=== PATIENT | male | born 1985 | race Caucasian/White ===

== ENCOUNTER 2016-10-07 14:13 | Day surgery (SDC) | payer OTHER ==
[~2016-10-07] VITALS: Ht 177.8 cm; Wt 74.5 kg
[2016-10-07] VITALS (7 sets, daily range): BP systolic 116–138; BP diastolic 69–96; PULSE 69–79; RESP 5–19; O2SAT 98–99
[~2016-10-07 14:13] MED LIST: BENZ200C44 PO; CeFAZolin 2 Gm/50 mL D5W IV Premix IV ONE; Dexamethasone 4 mg/mL Inj IVPUSH PRN; EPHEDrine Sulfate 50 mg/mL Inj IVPUSH PRN; GUAI473S22 PO; HYDR-4003 PO; HYDROmorphone 1 mg/mL Inj IVPUSH PRN; Labetalol 5 mg/mL 4 mL Inj IV PRN; Lactated Ringer's 1,000 ML IV SCH; Lactated Ringer's 500 ML IV PRN; MetoCLOpramide 5 mg/mL 2 mL Inj IVPUSH PRN; Ondansetron 2 mg/mL 2 mL Inj IVPUSH PRN; Phenylephrine 10,000 mCg/mL Inj IVPUSH PRN; hydrALAZINE 20 mg/mL Inj IVPUSH PRN
[2016-10-07] MEDS ORDERED: Glycopyrrolate 0.2 MG/ML 1mL Inj ONE (14:14)
[2016-10-07] MEDS ORDERED: Rocuronium 10 mg/mL 5 mL Inj ONE (14:14)
[2016-10-07] MEDS ORDERED: HYDROmorphone 1 mg/mL Inj ONE (14:14)
[2016-10-07] MEDS ORDERED: fentaNYL-PF 50 mCg/mL 2 mL Inj ONE (14:14)
[2016-10-07] MEDS ORDERED: Dexamethasone 4 mg/mL Inj ONE (14:14)
[2016-10-07] MEDS ORDERED: Neostigmine 1 mg/mL 5 mL Inj ONE (14:14)
[2016-10-07] MEDS ORDERED: Ondansetron 2 mg/mL 2 mL Inj ONE (14:14)
[2016-10-07] MEDS ORDERED: Succinylcholine Chloride 20 mg/mL 5 mL Inj ONE (14:14)
[2016-10-07] MEDS ORDERED: Ketamine 10 mg/mL 20 mL Inj ONE (14:14)
[2016-10-07] MEDS ORDERED: Propofol 10 mg/mL 20 mL Inj ONE (14:14)
[2016-10-07] MEDS: Lactated Ringer's 1,000 ML IV SCH ×2 (14:24→15:20)
[2016-10-07] MEDS ORDERED: CeFAZolin 2 Gm/50 mL D5W Duplex Bag IV ONE (14:50)
--- NOTE | 2016-10-07 15:20 | PCM.HPANE ---
Patient Data Date of Service: Oct 07, 2016 Surgeon Admitting Provider: Attending Provider:Nacho Chan MD Primary Care Physician:Evangelina Other Provider:Loren Polo Anesthesia Reason for Visit Left Inguinal Hernia Ht/WT & BMI Height (Feet): 5 Height (Inches): 10.00 Weight (Kilograms): 74.500 Body Mass Index 23.00 Allergies Coded Allergies: No Known Allergies (Unverified , 10/06/16) Past Anesthesia History Anesthesia History: Denies:: Abnormal Airway, Anesthesia Reactions, Difficult Intubation Diabetes History Hx Diabetes?: No MRSA MRSA: No Medications Hypertension Medication: No Home Meds Incl Beta Shonda: No Reported Medications Hydrocodone-Acetaminophen 5-325 mg 1 Each Tablet1 Tablet PO Q8H PRN For Pain Ref 0 10/05/16 Guaifenesin/Codeine Phosphate (Guaifenesin AC Cough Syrup)473 Ml [id number] Ml PO Q4H PRN For Congestion 10/05/16 Benzonatate 200 Mg [id number] Mg PO BID PRN For Cough 10/05/16 History History of ENT Problems?: Yes HEENT History: Positive for:: Sinus Problem (deviated septum, hx of surgery - uses afrin) Denies:: Abnormal Airway Cataracts Difficult Intubation Dysphagia Glaucoma Hearing Problem TMJ Denture Type: None Teeth Condition: Within Normal Limits Missing Teeth Hx of Heart Problems?: No Cardiovascular History: Denies:: AICD Abdominal Aortic Aneurism Atrial Fibrillation Cardiac Surgery Chest Pain Congestive Heart Failure Coronary Artery Disease Edema Heart Murmur Hypertension Irregular Heartbeat Pacemaker Peripheral Vascular Rheumatic Fever Thrombophlebitis Hx of Respiratory Problem?: Yes Respiratory History: Positive for:: Cough (hx of recent cough/cold with rx given , getting better- no fever) Denies:: Asthma COPD Oxygen Administration Pneumonia Tuberculosis Use of C-PAP Machine Use of Inhalers / NEBS Hx Neurologic Problems?: No Neurological History: Denies:: CVA Headaches Multiple Sclerosis Parkinson's Disease Seizures TIA Hx of GI Problems?: Yes Other GI Pertinent History: left inguinal hernia current admission problem Hx of Problems?: No Genitourinary History: Denies:: Kidney Stones Urinary Tract Infection Male Hx: Denies:: Prostate Problems Scrotal Mass Testicular Surgery Hx Musculoskeletal Problems?: No Musculoskeletal History: Denies:: Back Injury Degenerative Joint Fibromyalgia Joint Replacement Musculoskeletal Trauma Myasthenia Gravis Osteoarthritis Systemic Lupus Hx of Psycho/Social Problems?: No Hx Surgeries?: Yes (nasal septal surgery, wisdom teeth) Hx Any Other Health Problems?: Yes Other History: Denies:: Cancer Thyroid Disease History Blood Transfusions: Positive for:: Accept Blood Products? Denies:: Blood Transfusions Hx Diabetes: No Hx Alcohol Use: YesAlcoholic Drinks Per Day: 2-3 drinks weekendHx Substance Use: NoHave You Smoked inLast 12 mo: Yes (one half pack ) Stop/Bang S-Snoring: Do You Snore Loudly: No T-Tired: feel tired, fatigued: No O-Obsered: Observed not breath: No P-Blood Pressure: treated: No B- Body Mass Index > 35 kg/m2: No A- Age over 50: No N- Neck Large Circumference: No G- Gender Male: Yes ALTHEA Total Score: 1 ALTHEA Risk Assessment: Low Risk, <3 Yes Risk Assessment Category Category 1A: Patient has history of documented sleep apnea, and HAS NOT received any narcotic, sedative or anesthesia administration during this stay. Category 1B: Patient has history of documented sleep apnea, and HAS received any narcotic , sedative or anesthesia administration during this stay Category 2: Patient has SUSPECTED Obstructive Sleep Apnea, and HAS received any narcotic , sedative or anesthesia administration during this stay. Category 3: Patient has SUSPECTED Obstructive Sleep Apnea and HAS NOT received narcotic, sedative or anesthesia administration during this stay. Category 4: Outpatient in Procedural Areas with known sleep apnea or who screen positive for High Risk via the STOP/BANG questionnaire. Exam Exam Vital Signs Vital Signs Date Time Temp Pulse Resp B/P Pulse Ox O2 Delivery O2 Flow Rate FiO2 10/07/16 14:35 36.5 79 18 127/74 99 Room Air General Appearance: Alert, Oriented X3, Cooperative, No Acute Distress HEENT/AIRWAY: MP 2 Lungs: Clear to Auscultation, Normal Air Movement Heart: Exam Unremarkable, Regular Rate/Rhythm, No Murmurs/Rubs/Gallops Meds/Labs/Diagnostics Admission Meds Current Medications Lactated Ringer's (Lr) 1,000 ml @ 120 mls/hr Q8H20M IV Last administered on t 14:24; Start 10/07/16 at 05:00; Stop 10/07/16 at 13:19; Status DC Plan Impression Patient chart reviewed, patient interviewed and anesthestic plan with risks, benefits, and alternatives discussed, and informed consent obtained. NPO per Anesth. Guidelines: Yes ASA Physical Status: ASA2 Mod Systemic Disease Anesthetic Plan: GA Bene/Risks/Altern/Consents: Yes HP Complete Prior to Induction: Yes Sha Mancia MD Oct 07, 2016 15:20
[2016-10-07] MEDS ORDERED: Bupivacaine-MPF 0.25% 30 mL Inj INFILTRATE ONE (15:53)
[2016-10-07] MEDS ORDERED: oxyCODONE-Acetamin 5-325 mg Tablet PO PRN (16:25)
[2016-10-07] MEDS: fentaNYL-PF 50 mCg/mL 2 mL Inj IVPUSH PRN ×4 (16:51→17:35)
--- NOTE | 2016-10-07 17:05 | OP ---
[address] [address] OPERATIVE REPORT PATIENT: ALEJANDRO PARKER : 1985 MR#: [id number] ADMIT: 10/07/2016 JOB ID: [id number] DATE OF SURGERY: 10/07/2016 ANESTHESIA: General. PREOPERATIVE DIAGNOSIS(ES): Left inguinal hernia. POSTOPERATIVE DIAGNOSIS(ES): Left inguinal hernia (indirect). OPERATION: Laparoscopic repair of left inguinal hernia using mesh (TEP approach). SURGEON: Dr. Nacho Chan. GLUE JOINTER FEEDER: Rigo Choudhary PA-C (the podiatry assistant was required for the safe and timely completion of the case) and Tripp Velazco PA-C. COMPLICATIONS: None. ESTIMATED BLOOD LOSS: Less than 2 mL. CONDITION: Satisfactory. SPECIMEN: None. FINDINGS: There was a moderate-sized indirect inguinal hernia. This was repaired in a total extraperitoneal approach using a large left-sided Bard 3D Max mesh. INDICATIONS/SIGNIFICANT HISTORY: The patient is a 31-year-old man who recently developed a symptomatic left inguinal hernia. He was referred to me and elected to undergo laparoscopic repair. OPERATIVE TECHNIQUE: The patient was taken to the operating room and placed in supine position. General anesthesia was administered and perioperative antibiotics were given. The abdomen and groin were prepped and draped in standard surgical fashion. A procedural pause performed. I made a small infraumbilical incision and opened the anterior rectus sheath on the right side. The 10 mm port was inserted down into the preperitoneal space and insufflation delivered. I then bluntly developed the preperitoneal space. Local anesthetic was injected, followed by insertion of two 5 mm ports in the lower midline. I then continued to develop the preperitoneal space, identifying the pubis medially and then going out lateral to the hernia sac. I identified the inferior epigastric vessels on the left side. The hernia sac was coursing out lateral to those. I then reduced the hernia sac completely off the cord and reduced the peritoneum well away from the cord structures. A left-sided piece of Bard 3D Max mesh, large, was then inserted and positioned with good coverage of the direct and indirect spaces as well as the femoral space. This was held in place while the insufflation was released. The peritoneum was seen to billow up over the mesh. The ports were then removed. The fascia was closed at the 10 mm port site with 0 PDS suture. Skin was closed using 4-0 Monocryl. Dermabond was applied. The entire procedure was well tolerated without complication.
--- NOTE | 2016-10-08 07:27 | PCM.ANEP1 ---
Post Anesthesia PACU Phase 1 Assessment Anesthetic Administered: GA Level of Alertness: Awake, talking Pain: No Nausea or Vomiting: No CV Function & Hydration Stable: Yes Airway Device: Oxygen Delivery: Room Air Lungs: Clear to Auscultation, Normal Air Movement PACU Phase 2 Assessment Complications: No Follow up Care: N/A Patient Instructions Provided: N/A Sha Mancia MD Oct 08, 2016 07:27
== END 2016-10-07 23:59 | disposition home or self-care (01) ==
LOC: SAS 14:13
PROVIDERS: ATTEND General Practice
DX: K40.90 Unilateral inguinal hernia, without obstruction or gangrene, not specified as recurrent (principal); F17.210 Nicotine dependence, cigarettes, uncomplicated; F17.290 Nicotine dependence, other tobacco product, uncomplicated; X50.0XXA Overexertion from strenuous movement or load, initial encounter; Y93.9 Activity, unspecified; Y92.69 Other specified industrial and construction area as the place of occurrence of the external cause; Y99.0 Civilian activity done for income or pay
CPT/HCPCS: 49650; C1781; J0330; J0690; J1100; J1170; J1885; J2250; J2405; J2710; J3010; J7120